=== PATIENT | male | born 1980 | race Hispanic/Latino ===

== ENCOUNTER 2022-07-26 23:11 | Emergency (ER) | payer SELFPAY ==
[2022-07-27 00:47] LABS: Basophils # (Auto) 0.1 K/mm3 (0.0-0.1); Basophils % (Auto) 0.9 % (0.0-1.8); Eosinophils % (Auto) 0.3 % (0.0-4.3); Hematocrit 45.8 % (35.5-45.6); Hemoglobin 16.1 gm/dl (11.8-15.2); Lymphocytes # (Auto) 1.8 K/mm3 (1.2-5.4); Lymphocytes % (Auto) 13.9 % (13.4-35.0); Mean Corpuscular HGB Conc 35 % (32-34); Mean Corpuscular Volume 88 fl (84-94); Monocytes % (Auto) 8.1 % (0.0-7.3)
[2022-07-27 00:59] LABS: Blood Urea Nitrogen 20 mg/dL (9-20); Calcium 8.8 mg/dL (8.4-10.2); Hemolysis Index 27
[2022-07-27 01:01] LABS: Platelet Count 249 K/mm3 (140-440)
--- NOTE | 2022-07-27 01:07 | Emergency Department Report ---
HPI - General Chief Complaint: Overdose PUI?: No Time Seen by Provider: 07/27/22 00:00 - HPI HPI: 41-year-old morbidly obese male with a history of polysubstance abuse including methamphetamines, crack cocaine, amphetamines, and alcohol, brought in by EMS secondary to "erratic behavior.". This report is provided to me by the charge nurse. EMS personnel is not readily available. Patient states "because I could not find a good vein I injected drugs into the vein and the side of my penis." He denies any thoughts of hurting himself or others. He denies any auditory visual hallucinations. He states he has not slept in several days, "b/c I've been doing nothing but drugs." Pain 0/10.. ED Past Medical Hx - Past Medical History Previous Medical History?: Yes Hx Psychiatric Treatment: Yes - Social History Smoking Status: Current Every Day Smoker Substance Use Type: Cocaine, Prescribed, Methamphetamines, Other ED Review of Systems ROS: Stated complaint: OVERDOSE Other details as noted in HPI Comment: All other systems reviewed and negative Physical Exam - Physical Exam Vital Signs: Vital Signs 07/26/22 23:19 Temperature 98.7 F Pulse Rate 112 H Respiratory 18 Rate Blood Pressure 148/110 O2 Sat by Pulse 98 Oximetry General: Gen: pt is well appearing, no acute distress HEENT: Normocephalic atraumatic pupils equally round and reactive to light extraocular muscles intact sclera anicteric Neck: Full range of motion, no midline spinal tenderness palpation, no JVD, no carotid bruits, no nuchal rigidity CVS: S1-S2 regular rate and rhythm with no gallops rubs or murmurs, chest wall nontender Pulmonary: Clear to auscultation bilaterally, no wheezes rales or rhonchi Abdomen: Soft nondistended nontender no guarding or rebound tenderness, no palpable deformities or step-offs, normal active bowel sounds, no hepatosplenomegaly, no pulsatile masses : Deferred Extremities: No cyanosis no clubbing no edema, intact distal peripheral pulses, Integumentary: Skin normal, no petechia no purpura no abscess no lacerations no evidence of trauma no evidence of infection Neuro: Patient is awake alert and oriented to person place time situation, mentating well, cranial nerves II through XII intact, no focal neurodeficits, sensation grossly tact Psych: Calm cooperative, mood affect normal ED Course Vital Signs 07/26/22 23:19 Temperature 98.7 F Pulse Rate 112 H Respiratory 18 Rate Blood Pressure 148/110 O2 Sat by Pulse 98 Oximetry - Reevaluation(s) Reevaluation #1: 07/27/22 01:06 Patient reassessed. He is comfortable and well-appearing. His mentation is normal. He does not appear to be in any extremitas or under the influence of any mood altering substances. ED Medical Decision Making - Lab Data Result diagrams: 07/27/22 00:25 07/27/22 03:57 - Medical Decision Making 41-year-old male with polysubstance abuse brought in by EMS for agitation in the setting of the patient having consumed multiple illicit drugs. Vital stable. Patient is calm and cooperative here. He is not altered and has decision-making capacity. Patient agreed to remain for serum lab analysis as well as to undergo hydration via intravenous normal saline. Serum labs reviewed. Patient had elevated anion gap metabolic acidosis. He was given multiple liters of normal saline here and repeat basic metabolic panel demonstrates improvement in elevated anion gap metabolic acidosis. The patient was reassessed multiple times by me here and he remained comfortable and well-appearing. His mentation remained normal. He manifested no signs or symptoms of acute intoxication or decompensation in the setting of having to consumed multiple illegal drugs. His neurovascular examination is unremarkable. Patient counseled extensively and advised to abstain from consuming illegal drugs given the risk. Patient discharged to home in stable and asymptomatic condition. Prior to discharge she was given strict verbal and written return precautions. Critical Care Time: No Critical care attestation.: If time is entered above; I have spent that time in minutes in the direct care of this critically ill patient, excluding procedure time. ED Disposition Clinical Impression: Polysubstance abuse Disposition: 01 HOME / SELF CARE / HOMELESS Is pt being admited?: No Does the pt Need Aspirin: No Condition: Stable Instructions: Substance Use Disorder and Mental Illness Additional Instructions: It is strongly advised that you stop abusing drugs. They are illegal and they can be harmful, and even cause . Follow up with your mental health provider within 1-2 business days for reevaluation and to discussion. Return if your symptoms worsen or if any other new worrisome symptoms develop Referrals: AZRA LEWIS MD [Primary Care Provider] - 3-5 Days
[2022-07-27 01:18] LABS: BUN/Creatinine Ratio 29
[2022-07-27] MEDS ORDERED: SODIUM CHLORIDE 0.9% 1000 ML 1,000 ML IV ONE ×2 (01:48)
[2022-07-27 04:44] LABS: Blood Urea Nitrogen 18 mg/dL (9-20); Hemolysis Index 4
[2022-07-27 04:50] LABS: BUN/Creatinine Ratio 30
[2022-07-27 06:21] VITALS: BP 142/51
--- NOTE | 2022-07-27 13:41 | Electrocardiograph Report ---
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
== END 2022-07-27 07:13 | disposition home or self-care (01) ==
LOC: ED 23:11
DX: F19.10 Other psychoactive substance abuse, uncomplicated (principal); F17.200 Nicotine dependence, unspecified, uncomplicated
CPT/HCPCS: 36415; 80048; 85025; 93005; 96360; 96361; 99283; J7030; 80320; G0480